=== PATIENT | female | born 1965 | race Caucasian/White ===

== ENCOUNTER 2023-04-14 09:52 | Outpatient (AMB) | payer OTHER, SELFPAY ==
--- NOTE | 2023-04-14 10:01 | A.SPINEOV_ITS ---
Intake Intake Visit Reasons: Cervicalgia Intake Note: Mrs. Conner is here today c/o neck pain. MRI done @ [facility]/brought disc. [employer] Community Relations Coordinator Required: No Assessment & Plan Assessment & Plan (1) Cervical radiculopathy: Code(s): M54.12 - Radiculopathy, cervical region Plan Dear Jose, Thank you for referring Mrs Conner to our office today. She is a very nice 57-year-old female with a history of multiple sclerosis and a complicated spinal history including anterior cervical fusion from C3-C7. She has also had multiple posterior foraminotomies. Her original surgery was done by Dr. Nava at C5-6 about 15 or so years ago and she had subsequent 3 foraminotomies done by her. Each successive surgery was less helpful. She saw Dr. Downs who was working at [facility] at the time and he did fusion of C3-4, C4-5 and C6-7 on her. She was doing okay from these surgeries with on and off chronic pains but about a year ago started to develop burning down both arms into her thumb and index finger. Because of the distance to travel to see who moved his practice to [place] she wanted to see someone more local so she came to our office as a consult. She has tried numerous rounds of conservative treatment to deal with this pain including physical therapy, medication trials including tizanidine, baclofen, ibuprofen, Aleve. She also underwent bilateral C5 TFE earlier this year but that did not give her any relief. She does not describe even a temporary affect. She had an MRI done showing postsurgical changes extensively throughout the cervical spine with persistent bilateral C5 foraminal narrowing and is here today to see if there are any surgical options for her. PMH: As listed above she has an extensive cervical spinal surgery history, but also has had lumbar microdiskectomies and has a lumbar spinal cord stimulator, history of MS and is followed at the [facility] and has been stable on Ocrevius. 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 , history of a , hysterectomy Social hx: She does not smoke Medications: Ocrevus, ibuprofen, tizanidine, baclofen, Aleve, pantoprazole, trazodone and duloxetine Allergies: Latex, morphine and Percocet gives her itching Physical exam: She is awake alert oriented here with her today no acute distress, she has a lot of pain with any movement or manipulation of her arms or legs so thorough motor testing was difficult. She has 3+ symmetric reflexes at the biceps, triceps, patella, negative Darrin sign Imaging review: Cervical MRI done at [facility] this year shows extensive postsurgical changes from C3-C7. There is no central canal stenosis, there is some residual T2 cord signal change behind the body of C5 but no ongoing compression. This may represent an MS plaque or it may represent previous compression at that level. The only persistent nerve root compression I can see is at the C4-5 level where there is foraminal narrowing. Impression: 57-year-old female with extensive cervical spinal history as outlined above with what sounds like 7 procedures with fusion from C3-C7 with persistent arm pain going down into her hands in a C6 distribution. I do not see anything on the MRI to corroborate C6 nerve compression. There is C5 foraminal narrowing which is moderate to severe but unfortunately she did not have any relief from the injections so I would have a hard time believing that that is where could be coming from. She had a previous EMG showing chronic radiculopathy and nerve damage from C5-T1. I am going to repeat the EMG just to rule out that this could be some kind of atypical presentation of carpal tunnel or to establish the possibly this is an unusual presentation of an acute C5 radiculopathy. I did explain her that the likelihood that further surgery would be successful is very low given all the previous surgeries and scar tissue but n one the less we will do our due diligence and see if we can find a source for where this is coming from. Thank you for allowing us to care for your patient. The total time spent with this visit with this patient was 45 minutes reviewing history, physical exam, cervical spine imaging review, and implementation of treatment plan or further diagnostic testing Raza Campbell MD,PhD [facility] Orders: Orders NE electromyogram (EMG) Today M54.12 - Radiculopathy, cervical region Coding Level of Care Code New Pt Level 4 (96048) Diagnoses Cervical radiculopathy M54.12
== END 2023-04-14 11:02 | disposition home or self-care (01) ==
PROVIDERS: Referring Provider Physician Assistant; Visit Provider Physician Assistant
DX: M54.12 Radiculopathy, cervical region (principal)
CPT/HCPCS: 99204

== ENCOUNTER → 2023-04-14 09:52 | Outpatient (BNVA) | payer OTHER, SELFPAY | PROVIDERS: Visit Provider Physician Assistant ==

== ENCOUNTER 2023-04-17 12:46 | Outpatient (REF) | payer OTHER, SELFPAY ==
--- NOTE | 2023-04-17 | EMG_ITS ---
Chief complaint: History of cervical surgeries, MS, with continued pain and numbness on both upper extremities, right worse than left Reason for referral: Evaluate for Carpal Tunnel Syndrome versus radiculopathy Referred by: Raza AGUSTIN Procedure done: Bilateral upper extremities NCS/EMG Precautions and/or limitations: Pacemaker The limb temperature was monitored continuously and remained between 32-36 degrees C during the performance of the NCS. Nerve Conduction Studies Anti Sensory Summary Table ?Stim Site NR Onset (ms) Norm Onset (ms) Peak (ms) Norm Peak (ms) O-P Amp (?V) Norm O-P Amp Site1 Site2 Delta-0 (ms) Dist (cm) Miguel (m/s) Norm Miguel (m/s) Left Median Anti Sensory (2nd Digit) Wrist ? 2.3 3.1 <3.6 19.0 >10 Wrist 2nd Digit 2.3 14.0 61 Right Median Anti Sensory (2nd Digit) Wrist ? 2.4 3.1 <3.6 22.0 >10 Wrist 2nd Digit 2.4 14.0 58 Left Ulnar Anti Sensory (5th Digit) Wrist ? 2.2 2.9 <3.7 17.3 >15.0 Wrist 5th Digit 2.2 14.0 64 Right Ulnar Anti Sensory (5th Digit) Wrist ? 2.2 2.8 <3.7 17.4 >15.0 Wrist 5th Digit 2.2 14.0 64 Motor Summary Table ?Stim Site NR Onset (ms) Norm Onset (ms) O-P Amp (mV) Norm O-P Amp iAmp (mV) Amp (1st) (%) Site1 Site2 Delta-0 (ms) Dist (cm) Miguel (m/s) Norm Miguel (m/s) Left Median Motor (Abd Poll Brev) Wrist ? 3.1 <3.9 7.6 >4.5 9.4 100.0 Elbow Wrist 4.0 22.0 55 >45 Elbow ? 7.1 7.5 9.0 98.7 Right Median Motor (Abd Poll Brev) Wrist ? 3.0 <3.9 10.9 >4.5 13.1 100.0 Elbow Wrist 4.2 22.0 52 >45 Elbow ? 7.2 8.3 10.0 76.1 Left Ulnar Motor (Abd Dig Minimi) Wrist ? 2.6 <3.0 6.6 >5 7.8 100.0 B Elbow Wrist 3.3 22.0 67 >45 B Elbow ? 5.9 4.2 5.1 63.6 A Elbow B Elbow 1.1 10.0 91 >45 A Elbow ? 7.0 6.4 7.7 97.0 Right Ulnar Motor (Abd Dig Minimi) Wrist ? 2.5 <3.0 10.8 >5 13.2 100.0 B Elbow Wrist 3.3 19.5 59 >45 B Elbow ? 5.8 8.4 10.6 77.8 A Elbow B Elbow 1.2 10.0 83 >45 A Elbow ? 7.0 9.9 12.2 91.7 Comparison Summary Table ?Stim Site NR Peak (ms) Norm Peak (ms) P-T Amp (?V) Site1 Site2 Delta-P (ms) Norm Delta (ms) Left Median/Radial Dig I Comparison (Digit 1 - 10cm) Median ? 2.6 <2.9 38.9 Median Radial 0.2 Radial ? 2.4 <2.8 9.4 Right Median/Radial Dig I Comparison (Digit 1 - 10cm) Median ? 2.7 <2.9 106.0 Median Radial 0.2 Radial ? 2.5 <2.8 6.6 EMG ?Side Muscle Nerve Root Ins Act Fibs Psw Amp Dur Poly Recrt Int Pat Comment Right 1stDorInt Ulnar C8-T1 Nml Nml Nml Nml Nml 0 Nml Complete Right FlexCarRad Median C6-7 Nml Nml Nml Incr Incr 0 Nml Complete Right Biceps Musculocut C5-6 Nml Nml Nml Incr Incr 0 Nml Complete Right Triceps Radial C6-7-8 Nml Nml Nml Nml Nml 0 Nml Complete Right Deltoid Axillary C5-6 Nml Nml Nml Nml Nml 0 Nml Complete Left 1stDorInt Ulnar C8-T1 Nml Nml Nml Nml Nml 0 Nml Complete Left FlexCarRad Median C6-7 Nml Nml Nml Nml Nml 0 Nml Complete Left Biceps Musculocut C5-6 Nml Nml Nml Nml Nml 0 Nml Complete Left Triceps Radial C6-7-8 Nml Nml Nml Nml Nml 0 Nml Complete Left Deltoid Axillary C5-6 Nml Nml Nml Nml Nml 0 Nml Complete FINDINGS: All motor and sensory nerves tested showed normal latencies, amplitudes and conduction velocities. Concentric needle EMG was performed in selected muscles of the bilateral upper extremities. Study revealed signs of electric abnormalities as shown in the table below. Right biceps and FCR showed increased amplitude and duration. IMPRESSION: 1. This is an abnormal study. 2. There is electrodiagnostic evidence for right chronic C5-6 radiculopathy. 3. There is no electrodiagnostic evidence for median neuropathy, ulnar neuropathy, brachial plexopathy on both sides, or left cervical radiculopathy. Thank you for your kind referral. Jovita Sotomayor MD, VALERIE Board Certified, [place] [employer] and [employer] (ABPMR) Board Certified, [place] Board [employer] Electro[employer] (ABEM) CODIN 50196 x2 MTDD
== END 2023-04-17 12:47 | disposition home or self-care (01) ==
LOC: HO.NEURO 12:46
PROVIDERS: PCP Internal Medicine; Visit Provider Physician Assistant
DX: M54.12 Radiculopathy, cervical region (principal)
CPT/HCPCS: 95886; 95911

== ENCOUNTER → 2023-04-17 12:53 | Outpatient (BNV) | payer OTHER, SELFPAY | PROVIDERS: PCP Internal Medicine; Visit Provider Physical Medicine & Rehabilitation | DX: M50.122 Cervical disc disorder at C5-C6 level with radiculopathy (principal) | CPT/HCPCS: 95886; 95911 ==